=== PATIENT | female | born 1980 | race Two or more races ===

== ENCOUNTER 2019-07-27 19:57 | Emergency (ER) | payer MEDICAID ==
[~2019-07-27] VITALS: Ht 152.4 cm; Wt 68.0 kg
[2019-07-27 20:08] VITALS: BP 130/77
== END 2019-07-27 23:18 | disposition home or self-care (01) ==
LOC: ED 22:28
DX: B34.9 Viral infection, unspecified (principal)
CPT/HCPCS: 71045; 99283